=== PATIENT | male | born 1975 | race Caucasian/White ===

== ENCOUNTER 2019-02-03 07:33 | Day surgery (SDC) | payer OTHER ==
[2019-02-03] MEDS ORDERED: Dextrose 5%-Lactated Ringers 1,000 ML IV SCH (07:45)
[2019-02-03] MEDS ORDERED: fentaNYL 100 MCG/2 ML SDV ONE ×2 (08:18→08:20)
[2019-02-03] MEDS ORDERED: Propofol 200 MG/20 ML SDV ONE ×3 (08:18→09:58)
[2019-02-03] MEDS ORDERED: Midazolam 1 MG/ML 2 ML SDV ONE ×2 (08:18→08:20)
--- NOTE | 2019-02-12 13:57 | OR ---
DATE OF PROCEDURE: 02/03/2019 SURGEON: Michele Smith MD PREOPERATIVE DIAGNOSES: 1. Fecal incontinence. 2. History of previous colonic polyps. POSTOPERATIVE DIAGNOSES: 1. Fecal incontinence with no obvious anal sphincter abnormality. 2. No recurrent polyps. 3. Normal prostate examination. OPERATIVE PROCEDURE: Flexible colonoscopy. ANESTHESIA: IV sedation. INDICATIONS FOR PROCEDURE: This is a 43-year-old presenting with some ongoing problems with fecal incontinence. This is bothersome enough that he is seeking medical attention. He also has a history of colonic polyps in the past removed by colonoscopy. The plan is to proceed with a colonoscopy with biopsies and/or polypectomy as indicated. We will also get a digital sense of the intactness of his anal sphincter. Potential risks including bleeding and perforation were discussed, and the patient wishes to proceed. DETAILS OF PROCEDURE: The patient was taken to the operating room, placed in a left lateral decubitus position. IV sedation was administered after which the initial digital rectal exam was performed. The patient had an intact anal sphincter with no obvious abnormalities to digital examination. The prostate was uniform and not enlarged with no nodules or clinical areas of suspicion. The colonoscope was then passed into the rectum. Retroflexion revealed uncomplicated hemorrhoidal columns. The scope was eventually passed to the level of the cecum. The prep was quite good. There were no polyps or other signs of neoplasia. Otherwise, there were no diverticula and no areas of colitis. Scope was then withdrawn. The above findings reconfirmed, and the procedure was then concluded. Due to the patient's fecal incontinence and his relatively young age, a consultation with [facility] might be helpful to see if there is anything that could be done in terms and/or treatment regarding this condition. Otherwise, he should have a repeat colonoscopy in 5 years given the history of colon polyps. Michele Smith MD /[id number]
== END 2019-02-03 11:14 | disposition home or self-care (01) ==
LOC: JP.SDS 07:33
PROVIDERS: ATTEND Surgery
DX: R15.9 Full incontinence of feces (principal); Z86.010 Personal history of colon polyps
CPT/HCPCS: 45378; J2250; J2704; J3010; J7121

== ENCOUNTER 2020-04-24 08:35 | Day surgery (SDC) | payer OTHER ==
[~2020-04-24 08:35] MED LIST: Bupivacaine 0.5% 30 ML SDV ONE
[2020-04-24] MEDS ORDERED: Nozin Nasal Sanitizer NASBOTH ONE (09:00)
[2020-04-24] MEDS ORDERED: Lactated Ringers 1,000 ML IV SCH (09:00)
[2020-04-24] MEDS ORDERED: ceFAZolin 2 GM in Premix Bag 1 BAG IV ONE (09:30)
[2020-04-24] MEDS ORDERED: Rocuronium 50 MG/5 ML Vial ONE (09:45)
[2020-04-24] MEDS ORDERED: Ondansetron 4 MG/2 ML SDV ONE (09:45)
[2020-04-24] MEDS ORDERED: Dexamethasone 4 MG/ML SDV ONE (09:45)
[2020-04-24] MEDS ORDERED: Succinylcholine 200 MG/10 ML MDV ONE (09:45)
[2020-04-24] MEDS ORDERED: fentaNYL 250 MCG/5 ML SDV ONE ×2 (09:45→11:15)
[2020-04-24] MEDS ORDERED: Propofol 200 MG/20 ML SDV ONE (09:45)
[2020-04-24] MEDS ORDERED: Glycopyrrolate 0.2 MG/ML 5 ML MDV ONE (09:45)
[2020-04-24] MEDS ORDERED: Neostigmine Methylsulfate 1 MG/ML 5 ML Syringe ONE (09:45)
[2020-04-24] MEDS ORDERED: Acetaminophen/HYDROcodone 325-5 MG Tab PO PRN (12:32)
--- NOTE | 2020-04-25 01:07 | OR ---
DATE OF PROCEDURE: 04/24/2020 SURGEON: Alexandru Pettit MD PREOPERATIVE DIAGNOSIS: Medial meniscus tear, left knee. POSTOPERATIVE DIAGNOSES: 1. Posterior horn medial meniscus tear, left knee, horizontal cleavage and degenerative anterior horn. 2. Chondromalacia, lateral compartment tibial plateau and patella. PROCEDURES: 1. Arthroscopy, left knee, with repair of medial meniscus, posterior horn. 2. Debridement of anterior horn. 3. Chondroplasty, patella. STEM ROLLER OPERATOR: CHASE Castillo ANESTHESIA: General. INDICATIONS: Fabrizio is a 45-year-old gentleman with a history of persistent left knee pain, catching. Examination and MRI are consistent with a posterior horn oblique cleavage tear. Now presents for arthroscopic evaluation and probable repair versus partial meniscectomy. Risks, benefits, and potential complications of the procedure were discussed. DESCRIPTION OF PROCEDURE: After adequate anesthesia was obtained, the patient was placed supine with a tourniquet about the left upper thigh. Left leg was prepped and draped in a sterile fashion. Leg was exsanguinated and tourniquet inflated to 300 mmHg pressure. Standard inferior medial and lateral portals were established. The scope was introduced in the lateral portal and the patellofemoral joint was inspected. Upon entering the joint, numerous very small articular cartilage fragments were noted throughout these synovial fluid in suprapatellar pouch. Inspecting the patellofemoral joint, grade 2 changes were noted over the dome of the patella. The trochlear groove was intact. Moving into the medial compartment, degenerative complex tear noted of the anterior horn near the junction of the midbody of the meniscus with fraying of the undersurface of the posterior horn. The shaver was introduced and debrided the anterior horn back to a stable margin. Light debridement of the posterior horn was done until the fracture pattern could be delineated. A probe was utilized to further evaluate this, and the horizontal cleavage tear in a slightly oblique angle was noted. The edges of this were roughened using the hook probe, and multiple Mitek meniscal anchors were then placed. Excellent purchase and approximation of the tear were obtained with this. This was probed and once again found to be very stable. Intercondylar notch revealed intact ACL and PCL. Lateral compartment revealed an intact meniscus with some very minor fraying of the posterior horn and at the junction of the posterior root. Did, however, show significant chondromalacia on the tibial plateau, grade 3 with a significant softening around the margins of the defect. Full-thickness loss was not present. Some very minor debridement was done of this, but the articular surface was left primarily as is as it was thought that any attempted debridement would result in a larger defect. All loose fragments were removed. The knee was inspected once again and light debridement with chondroplasty was performed over the patella, which did have some areas of fissuring and loose articular flaps. This was more grade 2 and early grade 3 chondromalacia. The scope was switched from the lateral portal to the medial portal as a small area in the anterior horn of the medial meniscus showed some persistent irregularity. Using a combination of a punch basket and shaver from this angle allowed better debridement and bevelling of the edge. Again, all loose fragments were removed. The knee was drained. Scope was withdrawn. Port sites were closed in a standard fashion. Port sites in the knee were infiltrated with 0.5% Marcaine and a sterile dressing was applied. The patient tolerated the procedure well. There were no complications. He was taken from the operative room in stable condition. Alexandru Pettit MD /[id number]
== END 2020-04-24 14:17 | disposition home or self-care (01) ==
LOC: JP.SDS 08:35
PROVIDERS: ATTEND Specialist
DX: S83.242A Other tear of medial meniscus, current injury, left knee, initial encounter (principal); M17.12 Unilateral primary osteoarthritis, left knee; Z79.899 Other long term (current) drug therapy; E66.9 Obesity, unspecified; Z01.812 Encounter for preprocedural laboratory examination; Z20.822 Contact with and (suspected) exposure to COVID-19; M22.42 Chondromalacia patellae, left knee; Z68.38 Body mass index [BMI] 38.0-38.9, adult
CPT/HCPCS: 29882; 36415; 80048; 85027; 87635; A9270; C1713; J0330; J0690; J1100; J2405; J2704; J2710; J3010; J3490; J7120; U0002